=== PATIENT | male | born 1980 | race African-American/Black ===

== ENCOUNTER 2016-12-10 17:30 | Inpatient (IN) | payer OTHER ==
--- NOTE | ~2016-12-10 | HP ---
Unit #: [id number] #: [id number] Patient: CLAUDIA BRANTLEY [id number] [address] [address] [id number] I MR#: [id number] NAME: CLAUDIA BRANTLEY ROOM: 555 Age: 36 Sex: F Admission Date: 12/10/2016 : 1980 Attending Physician: Kathy Harp M.D. Primary Care Physician: No Primary Care Physician HISTORY AND PHYSICAL CHIEF COMPLAINT Short of breath. This is a 36-year-old female who has a prior history of hypertension but she has not taken medication for awhile. She came to the emergency room because of progressive short of breath. She also had some orthopnea. She denies any chest pain, PND, palpitations, syncope. She received a dose of Lasix and after that she is feeling better. PAST MEDICAL HISTORY Positive for hypertension but she is not taking medication. PAST SURGICAL HISTORY None. ALLERGIES None. MEDICATIONS She is taking no medications. SOCIAL HISTORY Doesn't work. She smokes a pack a day. Drinks socially. FAMILY HISTORY Negative for premature CAD. PHYSICAL EXAMINATION GENERAL: She is lying comfortably in her bed. VITAL SIGNS: Heart rate 100 and regular, blood pressure is 130/60. She is breathing a respiratory rate of 16. HEENT: Eyes - conjunctivae normal. Pupils round, reactive. Oral mucosa is moist. No central cyanosis. NECK: No thyromegaly. Carotid upstroke is normal. JVD is markedly elevated. CHEST: She is breathing normal. Clear on auscultation. CARDIAC EXAM: She has a mild left parasternal lift. S1, S2 normally heard. There is a soft systolic murmur at the apex with S3 positive at the apex. ABDOMEN: Soft. Liver and spleen not enlarged. Abdominal aorta not palpable. Guaiac test not indicated. EXTREMITIES: No pedal edema. 2+ bilateral femoral and dorsalis pedis pulses. There is no clubbing. SKIN: No rash or abnormal pigmentation. Unit #: [id number] #: [id number] Patient: CLAUDIA BRANTLEY NEUROLOGICAL: She is oriented x3. Mood is normal. Muscle tone in all extremities normal. DIAGNOSTIC STUDIES CARDIOVASCULAR: EKG showing sinus tachycardia with poor R wave progression in anterior precordial leads with left atrial enlargement. LABORATORY: BNP is elevated, troponin is negative. ASSESSMENT 1. Dyspnea with clinical picture of congestive heart failure. 2. Cardiomyopathy. 3. Hypertension, of course not controlled due to noncompliance. PLAN 1. I will give one dose of Lasix now with potassium chloride. 2. I will start lisinopril 20 mg p.o. daily with hydrochlorothiazide 12.5 mg daily. 3. I will check echo for ejection fraction and check Chem-7 tomorrow. After reviewing her echo, she might be started on Coreg. Dictated by Sorin Fraser/raleigh TD: 12/11/2016 10:34 JOB #: [id number] HISTORY AND PHYSICAL Page 1 of 1 X Anatoly Graf MD X HISTORY AND PHYSICAL
--- NOTE | ~2016-12-10 | DS ---
Unit #: [id number] #: [id number] Patient: CLAUDIA ATKINS [id number] [address] [address] [id number] I MR#: [id number] NAME: CLAUDIA ATKINS ROOM: 555 Age: 36 Sex: M Admission Date: 12/10/2016 : 1980 Discharge Date: 12/12/2016 Attending Physician: Kathy Harp M.D. Primary Care Physician: Rita Primary Care Physician DISCHARGE SUMMARY ADMISSION DIAGNOSES 1. Shortness of air. 2. Orthopnea. 3. History of hypertension. 4. Noncompliant with medications. 5. Tobacco abuse. DISCHARGE DIAGNOSES 1. Shortness of air. 2. Orthopnea. 3. History of hypertension. 4. Noncompliant with medications. 5. Tobacco abuse. 6. Acute systolic congestive heart failure. 7. Nonischemic cardiomyopathy 8. History of noncompliance. HOSPITAL COURSE Mr. Atkins is a 36-year-old -[place] male who was admitted with shortness of breath. He was given Lasix 40 mg IV, potassium. He was started on lisinopril, hydrochlorothiazide and echo was obtained. Echo was read by Dr. Marquez. Complete report is currently not available but the patient's EF is 20% to 25%. Serial troponins were negative for OH, less than 0.03, less than 0.03 and point of care was less than 0.05 and less than 0.05. He received a total of two doses of Lasix 40 mg IV prior to discharge. His shortness of air improved. LifeVest was consulted and prior to discharge patient will have a LifeVest applied. He will have a sleep study arranged with Dr. Banks post discharge, cardiac rehab consult. DISCHARGE MEDICATIONS Include: 1. Entresto / one p.o. b.i.d. 2. Hydrochlorothiazide 25 mg daily. 3. KCl 20 mEq daily. FOLLOWUP He will follow up with Dr. Marquez in two to four weeks. He will call [phone] for an appointment. DIAGNOSTIC STUDIES LABORATORY: Patient also had a cholesterol profile done which showed a total cholesterol of 102, triglycerides of 40, LDL of 62 and HDL of 32. AST was 54 and ALT was 103. Unit #: [id number] #: [id number] Patient: CLAUDIA ATKINS DISCHARGE INSTRUCTIONS Patient was counseled to stop smoking. This discharge took one hour with patient education, arrangements. Dictated by... Justice LawsonPTrishRLoki. for Artemio Marquez M.D. ERROL/hans TD: 12/12/2016 16:25 JOB #: [id number] DISCHARGE SUMMARY Page 1 of 1 X X DISCHARGE SUMMARY
--- NOTE | ~2016-12-10 | CO ---
Unit #: [id number] #: [id number] Patient: CLAUDIA BRANTLEY [id number] [address] [address] [id number] I MR#: [id number] NAME: CLAUDIA BRANTLEY ROOM: 555 Age: 36 Sex: M Admission Date: 12/10/2016 : 1980 Attending Physician: Kathy Harp M.D. CONSULTATION REPORT REASON FOR CONSULTATION Sleep apnea evaluation. CHIEF COMPLAINT Shortness of breath. HISTORY OF PRESENT ILLNESS A 36-year-old male has been diagnosed with congestive heart failure and cardiomyopathy. He complains of extreme daytime fatigue, sleepiness, loud snoring, and has witnessed apneas. I am seeing him at the bedside. PAST MEDICAL HISTORY Hypertension. PAST SURGICAL HISTORY None. ALLERGIES None. MEDICATIONS None. SOCIAL HISTORY He smokes one pack per day. He denies alcohol or drug abuse. FAMILY HISTORY None as per record. PHYSICAL EXAMINATION VITAL SIGNS: Temperature 98, pulse 87, respirations 12, and blood pressure 130/70. NEUROLOGICAL: Awake, alert, and oriented, with no neurological deficits. HEENT: Pupils equal, round, and reactive to light and accommodation. Extraocular movements are intact. NECK: Supple. No JVD. CHEST: Bilateral air entry, bilateral mild rhonchi. GASTROINTESTINAL: Nontender and soft. Bowel sounds positive. EXTREMITIES: No edema. SKIN: No rashes and no ulcers. LYMPHATICS: No lymphadenopathy. DIAGNOSTIC STUDIES LABORATORY: Reviewed. Unit #: [id number] #: [id number] Patient: CLAUDIA BRANTLEY IMAGING: Reviewed. ASSESSMENT 1. Dyspnea. 2. Cardiomyopathy. 3. Likely obstructive sleep apnea. PLAN Weight loss, sleep hygiene, sleep study as an outpatient, and follow with me in two weeks. Thank you very much for the consult. Dictated by... Sorin Sal TD: 12/12/2016 18:56 JOB #: [id number] CONSULTATION REPORT Page 1 of 1 X Keshawn Banks MD CONSULTATION REPORT
--- NOTE | ~2016-12-10 | CR72 ---
[facility]. [facility] A Service of [facility] & [facility] RADIOLOGY TEXT RESULTS PATIENT: CLAUDIA BRANTLEY LOCATION: [facility] : [birth year] UNIT #: [id number] AGE: [address]: TIFFANY OSCAR MD SEX: F ORDER DR: [id number] [address] [address] [id number] E MR#: [id number] Acc #: [id number] NAME: CLAUDIA BRANTLEY : 1980 SEX: M STUDY DATE/TIME: 12/10/2016 18:17 UNIT: SED ROOM: STUDY DESCRIPTION: CR Chest Single View Portable Attending Physician: Gabriel Canela M.D. Ordering Physician: Jeanette Dixon M.D. Primary Care Physician: Primary Care Physician No MEDICAL IMAGING REPORT This report is preliminary unless electronic signature is present. EXAM Portable chest INDICATIONS Shortness of breath for 2 weeks. No comparisons. FINDINGS The exam is rather underpenetrated; however, there may be a infiltrate in the right base. There may also be one in the retrocardiac left base as well. Heart size is upper normal. Visualized osseous structures are unremarkable. IMPRESSION The exam is underpenetrated. I do question infiltrates versus atelectasis in both lung bases. Dictated by... Jesse Magallanes M.D. THIS IS AN ELECTRONICALLY VERIFIED REPORT Jesse Magallanes M.D. at 12/12/2016 7:26 AM ARS/psc TD: 12/11/2016 00:27 JOB #: [id number] MEDICAL IMAGING REPORT Page 1 of 1
--- NOTE | ~2016-12-10 | EKG ---
PATIENT: CLAUDIA BRANTLEY UNIT #: [id number] Ventricular Rate: 115 BPM Atrial Rate: 115 BPM P-R Interval: 140 ms QRS Duration: 86 ms Q-T Interval: 316 ms QTC Calculation(Bezet): 437 ms P Rutledge: 60 degrees Calculated R Rutledge: 37 degrees Calculated T Rutledge: 49 degrees Diagnosis Line: Sinus tachycardia Diagnosis Line: Left atrial enlargement Diagnosis Line: T wave abnormality, consider anterolateral Diagnosis Line: ischemia Abnormal ECG Diagnosis Line: No previous ECGs available Diagnosis Line: Confirmed by ALAINA GAMBOA MD ([id number]) on 12/13/2016 Diagnosis Line: 10:19:42 AM INTERPRETING MD: BEE ROJAS
[~2016-12-10 17:30] MED LIST: PEN-VEE K PO; VICODIN 5/1 TAB 5/50 PO
[2016-12-10] MEDS ORDERED: NO MEDICATIONS (17:44)
[2016-12-10 18:02] LABS: BASOPHIL# 0.1 X10e3 (0-0.3); EOSINOPHIL# 0.1 X10e3 (0-0.7); EOSINOPHIL% 0.8 % (0.0-7.0); HEMATOCRIT 44.8 % (38.0-50.0); HEMOGLOBIN 14.8 gm/dL (13.0-16.0); LYMPHOCYTE# 3.4 X10e3 (1.0-3.5); LYMPHOCYTE% 42.4 % (17.0-45.0); MEAN CELL VOLUME 80.2 FL (83-96); MEAN CORPUSCULAR HEMOGLOBIN 26.6 PG (28-34); MEAN CORPUSCULAR HGB CONC 33.1 g/dL (30-36); MEAN PLATELET VOLUME 9.3 FL (6.5-11.5); MONOCYTE# 0.4 X10e3 (0-1.0); MONOCYTE% 5.3 % (3.0-12.0); NEUTROPHIL# 4.1 X10e3 (1.5-7.1); NEUTROPHIL% 50.5 % (40-75); PLATELET COUNT 201 X10e3 (140-420); RED BLOOD COUNT 5.59 X10e (3.90-5.60); WHITE BLOOD COUNT 8.1 X10e3 (4.0-10.5)
[2016-12-10 18:10] LABS: DIFF IND NO
[2016-12-10 18:19] LABS: POC - CKMB <1.0 ng/mL (0.0-7.9); POC - TROPONIN <0.05 ng/mL (<=0.05)
[2016-12-10 18:29] LABS: ALBUMIN SERUM 4.1 g/dL (3.5-5.0); BILIRUBIN, DIRECT 0.3 mg/dL (0.0-0.2); BILIRUBIN,INDIRECT 0.7 mg/dL (0.0-0.9); BUN/CREATININE RATIO 8.46; CALCIUM SERUM 8.9 mg/dL (8.4-10.2); CREATININE SERUM 1.3 mg/dL (0.6-1.4); GLOM FILT RATE Estimated 81.4 mL/min (>60); POTASSIUM 3.5 mmol/L (3.5-5.1)
[2016-12-10 20:02] LABS: POC - CKMB <1.0 ng/mL (0.0-7.9); POC - TROPONIN <0.05 ng/mL (<=0.05)
[2016-12-11 10:41] LABS: CHOLESTEROL 102 mg/dL (0-200); HDL CHOLESTEROL 32 mg/dL (35-95); LDL CHOLESTEROL 62 mg/dL (-130); LDL/HDL RATIO 2 RATIO (0-4); TRIGLYCERIDES 40 mg/dL (10-160)
[2016-12-12 08:27] LABS: BUN/CREATININE RATIO 10.76; CALCIUM SERUM 8.7 mg/dL (8.4-10.2); CREATININE SERUM 1.3 mg/dL (0.6-1.4); GLOM FILT RATE Estimated 61.1 mL/min (>60); POTASSIUM 3.6 mmol/L (3.5-5.1)
[2016-12-12] MEDS ORDERED: ENTRESTO 24 MG1 EACH PO (16:18)
[2016-12-12] MEDS ORDERED: KLOR-CON PO (16:20)
[2016-12-12] MEDS ORDERED: HYDROCHLOROTHIA25 MG PO (16:21)
[2016-12-13] MEDS ORDERED: COREG3.125 MG PO (17:08)
== END 2016-12-13 18:45 | disposition home or self-care (01) | DRG 293 ==
LOC: SED 17:30 → EDSEX 19:41 → C5B 19:41 → CEDOF 19:41 → C5B 12-11 00:10
PROVIDERS: Emergency Medicine; Internal Medicine Interventional Cardiology
PROC: B24BZZZ Ultrasonography of Heart with Aorta (ICD-10-PCS; principal; 2016-12-11)
DX: I11.0 Hypertensive heart disease with heart failure (principal); I42.8 Other cardiomyopathies; I50.21 Acute systolic (congestive) heart failure; Z91.14 Patient's other noncompliance with medication regimen; F17.210 Nicotine dependence, cigarettes, uncomplicated; G47.33 Obstructive sleep apnea (adult) (pediatric)
CPT/HCPCS: 36415; 71010; 80048; 80061; 80076; 82553; 83880; 84484; 85025; 93005; 93306; 99285; J1940

== ENCOUNTER 2017-04-17 22:41 | Emergency (ER) | payer OTHER ==
[~2017-04-17] VITALS: Ht 188 cm; Wt 131.5 kg
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
[~2017-04-17 22:41] MED LIST changes: +COREG3.125 MG PO; +ENTRESTO 24 MG1 EACH PO; +HYDROCHLOROTHIA25 MG PO; +KLOR-CON PO; +NO MEDICATIONS
[2017-04-17] MEDS ORDERED: HYDROCODON-ACE1 EAC7 PO (22:57)
[2017-04-18 00:14] LABS: BASOPHIL# 0.2 X10e3 (0-0.3); EOSINOPHIL# 0.1 X10e3 (0-0.7); HEMATOCRIT 29.5 % (38.0-50.0); HEMOGLOBIN 9.8 gm/dL (13.0-16.0); LYMPHOCYTE% 26.1 % (17.0-45.0); MEAN CELL VOLUME 79.7 FL (83-96); MEAN CORPUSCULAR HEMOGLOBIN 26.5 PG (28-34); MEAN CORPUSCULAR HGB CONC 33.2 g/dL (30-36); MEAN PLATELET VOLUME 7.8 FL (6.5-11.5); MONOCYTE% 12.8 % (3.0-12.0); NEUTROPHIL# 9.1 X10e3 (1.5-7.1); NEUTROPHIL% 59.1 % (40-75); PLATELET COUNT 513 X10e3 (140-420); RED CELL DISTRIBUTION WIDTH 14.9 % (11.0-15.5); WHITE BLOOD COUNT 15.4 X10e3 (4.0-10.5)
[2017-04-18 00:15] LABS: DIFF IND NO
[2017-04-18 00:31] LABS: ALBUMIN SERUM 3.5 g/dL (3.5-5.0); BILIRUBIN, DIRECT 0.3 mg/dL (0.0-0.2); BILIRUBIN,INDIRECT 0.5 mg/dL (0.0-0.9); BILIRUBIN,TOTAL 0.8 mg/dL (0.2-2.0); CALCIUM SERUM 8.8 mg/dL (8.4-10.2); GLOM FILT RATE Estimated 111.7 mL/min (>60); POTASSIUM 3.1 mmol/L (3.5-5.1); PROTEIN TOTAL SERUM 7.6 g/dL (6.0-8.3)
[2017-04-18 02:14] LABS: URINE SOURCE CLEAN CATCH
[2017-04-18 02:16] LABS: URINE APPEARANCE CLEAR; URINE BLOOD NEG (NEG); URINE COLOR YELLOW; URINE GLUCOSE NEG (NORM); URINE KETONE TRACE (NEG); URINE LEUKOCYTE ESTERASE NEG (NEG); URINE NITRATE NEG (NEG); URINE PROTEIN TRACE (NEG)
[2017-04-18 02:22] LABS: CULTURE INDICATED? NO; MICRO INDICATED? YES; URINE BACTERIA NEG (NEG); URINE BILIRUBIN NEG (NEG); URINE RBC 0-2 /[HPF] (0-2); URINE SQUAMOUS EPITHELIAL CELL OCCAS /[HPF]; URINE WBC 0-2 /[HPF] (0-5)
[2017-04-18 02:23] LABS: URINE MUCUS PRESENT
== END 2017-04-18 02:53 | disposition home or self-care (01) ==
LOC: SED 22:41
PROVIDERS: Emergency Medicine
DX: G89.18 Other acute postprocedural pain (principal); R10.9 Unspecified abdominal pain; I10 Essential (primary) hypertension; F17.210 Nicotine dependence, cigarettes, uncomplicated; Z79.899 Other long term (current) drug therapy
CPT/HCPCS: 36415; 71010; 80048; 80076; 81003; 82150; 83690; 85025; 96361; 96374; 99284; J2405